=== PATIENT | female | born 1995 | race Caucasian/White ===

== ENCOUNTER 2019-07-09 12:16 | Observation (INO) | payer BC ==
[2019-07-09] VITALS (11 sets, daily range): BP systolic 134–161; BP diastolic 93–110
[~2019-07-09] VITALS: Ht 162.6 cm; Wt 67.3 kg
[2019-07-09] MEDS ORDERED: normal saline 1000ML IV soln IV ONE (12:40)
[2019-07-09] MEDS ORDERED: ondansetron/PF 4mg/2ml inj IV ONE ×2 (12:40→14:20)
[2019-07-09 13:21] LABS: LIPASE 113 U/L (73-393)
[2019-07-09] MEDS ORDERED: ketorolac trometh inj. 60 MG/2 ML VIAL IM ONE (13:25)
[2019-07-09] MEDS ORDERED: ondansetron 4mg rapidly disintigrating tab PO ONE (13:25)
[2019-07-09] MEDS ORDERED: ondansetron/PF 4mg/2ml inj IM ONE (13:50)
[2019-07-09 13:53] LABS: BASOPHILS # (AUTO) 0.1 X10'3 (0-0.2); BASOPHILS % (AUTO) 0.7 % (0-1); EOSINOPHILS # (AUTO) 0.4 X10'3 (0-0.9); EOSINOPHILS % (AUTO) 5.3 % (0-6); HEMOGLOBIN 14.1 g/dl (12.0-16.0); LYMPHOCYTES # (AUTO) 2.8 X10'3 (1.1-4.8); MEAN CORPUSCULAR HEMOGLOBIN 31.2 PG (27.0-31.0); MEAN CORPUSCULAR HGB CONC 33.6 g/dL (33.0-36.5); MEAN CORPUSCULAR VOLUME 92.8 FL (78-98); MEAN PLATELET VOLUME 7.4 FL (7.4-10.4); MONOCYTES # (AUTO) 0.5 X10'3 (0-0.9); MONOCYTES % (AUTO) 6.9 % (2-12); NEUTROPHILS # (AUTO) 3.9 X10'3 (1.8-7.7); NEUTROPHILS % (AUTO) 50.1 % (42-75); PLATELET COUNT 355 X10'3 (140-440); RED BLOOD COUNT 4.52 X10'6 (4.20-5.60); RED CELL DISTRIBUTION WIDTH 12.1 % (11.5-14.5); WHITE BLOOD COUNT 7.7 X10'3 (4.5-11.0)
[2019-07-09 14:01] LABS: ALANINE AMINOTRANSFERASE 22 U/L (12-78); ALBUMIN 3.7 G/DL (3.4-5.0); ALBUMIN/GLOBULIN RATIO 0.9 (1.1-1.5); ALKALINE PHOSPHATASE 73 IU/L (46-116); ANION GAP 11 (8-16); ASPARTATE AMINO TRANSFERASE 12 U/L (10-37); BILIRUBIN,TOTAL 0.2 MG/DL (0.1-1.0); BLOOD UREA NITROGEN 8 MG/DL (7-18); BUN/CREATININE RATIO 13.3 (6.6-38.0); CALCIUM 9.1 MG/DL (8.5-10.1); CHLORIDE 106 MMOL/L (99-107); GLUCOSE 95 MG/DL (70-104); POTASSIUM 3.7 MMOL/L (3.5-5.1); SODIUM 141 MMOL/L (135-145); TOTAL CARBON DIOXIDE 24.5 MMOL/L (24-32); TOTAL PROTEIN 7.9 G/DL (6.4-8.2); eGFR > 90 ML/MIN
--- NOTE | 2019-07-09 14:12 | NUR ---
pt went for ultrasound.pt mother at bedside ,pt meds given before ultrasound co pain 07/10.
[2019-07-09] MEDS ORDERED: normal saline 1000ML IV soln IVB ONE (14:20)
[2019-07-09] MEDS ORDERED: morphine 4 MG/ML inj SYRINge IV PRN ×3 (14:20→20:30)
[2019-07-09] MEDS ORDERED: LORazepam 2 mg/ml vial IV ONE (14:45)
--- NOTE | 2019-07-09 14:53 | NUR ---
PT MOVED FROM [facility] 13 TO B[facility] 13
[2019-07-09] MEDS ORDERED: magnesium hydroxide 30ml (MOM) UD suspension PO PRN (15:05)
[2019-07-09] MEDS ORDERED: ondansetron/PF 4mg/2ml inj IV PRN ×3 (15:05→21:55)
[2019-07-09] MEDS ORDERED: acetaminophen 325mg tablet PO PRN (15:05)
[2019-07-09] MEDS ORDERED: mag hydrox/Alum hydrox/simeth 30ml oral suspension PO PRN (15:05)
[2019-07-09] MEDS: normal saline 1000ml 1,000 ML IV SCH (15:24)
--- NOTE | 2019-07-09 15:24 | NUR ---
CONFIRMED WITH DR ETIENNE THAT ONLY 1 LITER BOLUS NEEDED, PT AMBULATORY TO BATHROOM AND PROVIDED URINE SAMPLE PER ORDERS
[2019-07-09] MEDS ORDERED: CLON-528 PO (15:37)
--- NOTE | 2019-07-09 16:06 | NUR ---
DR TYLER AT BEDSIDE TO DISCUSS PROCEDURE WITH PT AND FAMILY AT BEDSIDE.
--- NOTE | 2019-07-09 16:49 | NUR ---
RECEIVED A CALL FROM OR, NAYELI IS IN A CASE AND HAS ONE MORE CASE AFTER AND THEN RN WILL CALL TO GET REPORT AND BRING PT TO OR. OR ASKING ABOUT UA AND HCG, INFORMED URINE WAS SENT BUT LABS WERE CANCELED BY CHERELLE, ORDERED UR AND HCG PER PROTOCOL
[2019-07-09 17:01] LABS: CLARITY,URINE SLIGHTLY CLOUDY (Clear); COLOR,URINE YELLOW (Yellow); GLUCOSE, URINE NEGATIVE (Neg); KETONES,URINE NEGATIVE (Neg); LEUKOCYTE ESTERASE ,URINE NEGATIVE (Neg); NITRITES, URINE NEGATIVE (Neg); OCCULT BLOOD,URINE NEGATIVE (Neg); PH,URINE 6.5 (4.8-8.0); PROTEIN,URINE NEGATIVE (Neg); URINE HCG NEGATIVE (NEG); UROBILINOGEN,URINE 0.2 E.U/dL (0.2-1.0)
[2019-07-09 17:03] LABS: UA COLLECTION TYPE CLN CATCH MIDSTREAM
[2019-07-09] MEDS ORDERED: ETON1VAG VG (17:03)
[2019-07-09 17:10] LABS: BACTERIA,URINE FEW /HPF (Neg); MUCUS STRANDS FEW /LPF (Neg); RBC,URINE 0-2 /HPF (0-2); SQUAMOUS EPITHELIAL CELL,UR FEW /LPF (FEW); TRANSITIONAL EPI CELLS,URINE FEW /HPF; WBC,URINE 0-4 /HPF (0-4)
[2019-07-09] MEDS ORDERED: clonazePAM 0.5mg tablet PO PRN (17:10)
--- NOTE | 2019-07-09 17:15 | NUR ---
Report received from ED RNCristin.
[2019-07-09] MEDS: levoFLOXACIN-Levaquin 500mg/D5 100 ML IV SCH (18:13)
--- NOTE | 2019-07-09 18:15 | NUR ---
Problems reprioritized. Patient report given, questions answered & plan of care reviewed with BERTA Gomes.
[2019-07-09] MEDS: HYDROmorphone inj. 0.5 MG/0.5 ML DISP.SYRIN IV PRN (18:19)
--- NOTE | 2019-07-09 18:30 | NUR ---
Patient in room [facility]. I have received report from BERTA Lombardi and had the opportunity to ask questions and assume patient care.
--- NOTE | 2019-07-09 19:43 | NUR ---
Called report to OR.
[2019-07-09] MEDS ORDERED: ceFAZolin 1000mg inj ONE (20:25)
[2019-07-09] MEDS ORDERED: BUPIVAcaine/PF 2.5 mg/ml (0.25%) 30ml vial ONE (20:25)
[2019-07-09] MEDS ORDERED: ringers solution, lacted 1,000 ML IV SCH (20:28)
[2019-07-09] MEDS ORDERED: proCHLORperazine 10 MG/2 ml inj IV PRN (20:30)
[2019-07-09] MEDS ORDERED: meperidine/PF 25mg/ml syringe IV PRN ×2 (20:30)
[2019-07-09] MEDS ORDERED: fentaNYL /PF 50mcg/ml 5ml ampule ONE (20:40)
[2019-07-09] MEDS ORDERED: midazolam 2 mg/2 ml injection ONE (20:40)
[2019-07-09] MEDS ORDERED: sevoflurane 250ml liquid IH ONE (20:46)
[2019-07-09] MEDS ORDERED: dexamethasone sod phosphate 4mg/ml inj. ONE ×2 (21:15→21:21)
[2019-07-09] MEDS ORDERED: propofol inj 20 ML IV ONE (21:21)
[2019-07-09] MEDS ORDERED: ondansetron/PF 4mg/2ml inj ONE (21:21)
[2019-07-09] MEDS ORDERED: neostigmine methylsulfate 1 MG/ML 10ml vial ONE (21:21)
[2019-07-09] MEDS ORDERED: glycopyrrolate 0.2mg/ml inj ONE (21:21)
[2019-07-09] MEDS ORDERED: rocuronium 10mg/ml inj IV ONE (21:21)
[2019-07-09] MEDS ORDERED: LIDOcaine 2% (20mg/ml) 5ml vial ONE (21:21)
[2019-07-09] MEDS ORDERED: ePHEDrine 50MG/ML INJ. ONE (21:33)
--- NOTE | 2019-07-09 21:57 | NUR ---
Received from OR via , accompanied by Anesthesiologist ABRIL and report given by Anesthesiolgist. AWAKE IN NO RESP DISTRESS SKIN WARM AND DRY HOB ELEVATED ABD SOFT DSG DI NO CO PAIN. VS WNL. SCDS ON.
[2019-07-09] MEDS ORDERED: labetalol 20mg/4ml (5mg/ml) syringe IV ONE (22:05)
[2019-07-09] MEDS: meperidine/PF 25mg/ml syringe IV PRN ×2 (22:14→22:26)
--- NOTE | 2019-07-09 22:47 | NUR ---
Report called to receiving nurse. Transferred via BED Belongings . Special Issues communicated to receiving nurse.AWAKE VS WNL ABD SOFT DSG DI, PAIN DECREASED WITH IV MEDS, MOM AT BS, SCDS ON. TO ROOM
[2019-07-10] VITALS (8 sets, daily range): BP systolic 105–141; BP diastolic 62–102
[2019-07-10] MEDS: HYDROmorphone inj. 0.5 MG/0.5 ML DISP.SYRIN IV PRN ×2 (02:49→07:18)
[2019-07-10 05:34] LABS: BASOPHILS % (AUTO) 0.1 % (0-1); EOSINOPHILS % (AUTO) 0 % (0-6); HEMATOCRIT 38.3 % (35.0-45.0); HEMOGLOBIN 12.9 g/dl (12.0-16.0); LYMPHOCYTES # (AUTO) 0.9 X10'3 (1.1-4.8); LYMPHOCYTES % (AUTO) 8.5 % (21-51); MEAN CORPUSCULAR HEMOGLOBIN 31.2 PG (27.0-31.0); MEAN CORPUSCULAR HGB CONC 33.8 g/dL (33.0-36.5); MEAN CORPUSCULAR VOLUME 92.5 FL (78-98); MONOCYTES # (AUTO) 0.2 X10'3 (0-0.9); NEUTROPHILS # (AUTO) 9.1 X10'3 (1.8-7.7); NEUTROPHILS % (AUTO) 89.4 % (42-75); PLATELET COUNT 289 X10'3 (140-440); RED BLOOD COUNT 4.14 X10'6 (4.20-5.60); RED CELL DISTRIBUTION WIDTH 11.7 % (11.5-14.5); WHITE BLOOD COUNT 10.2 X10'3 (4.5-11.0)
[2019-07-10 05:56] LABS: ALANINE AMINOTRANSFERASE 45 U/L (12-78); ALBUMIN 3.2 G/DL (3.4-5.0); ALBUMIN/GLOBULIN RATIO 0.8 (1.1-1.5); ALKALINE PHOSPHATASE 65 IU/L (46-116); ANION GAP 10 (8-16); ASPARTATE AMINO TRANSFERASE 44 U/L (10-37); BILIRUBIN,TOTAL 0.3 MG/DL (0.1-1.0); BLOOD UREA NITROGEN 6 MG/DL (7-18); CHLORIDE 104 MMOL/L (99-107); CREATININE 0.67 MG/DL (0.40-0.90); GLUCOSE 142 MG/DL (70-104); SODIUM 137 MMOL/L (135-145); TOTAL CARBON DIOXIDE 22.7 MMOL/L (24-32); TOTAL PROTEIN 7.1 G/DL (6.4-8.2); eGFR > 90 ML/MIN
--- NOTE | 2019-07-10 06:01 | NUR ---
Problems reprioritized. Patient report given, questions answered & plan of care reviewed with BERTA De.
--- NOTE | 2019-07-10 06:56 | NUR ---
Patient in room [facility]. I have received report from Eliseo HAMPTON and had the opportunity to ask questions and assume patient care.
[2019-07-10] MEDS: levoFLOXACIN-Levaquin 500mg/D5 100 ML IV SCH (07:18)
[2019-07-10] MEDS: normal saline 1000ml 1,000 ML IV SCH ×2 (07:24→11:01)
[2019-07-10] MEDS: HYDROcodone/acetaminophen 10/325mg tab PO PRN ×2 (08:26→13:25)
--- NOTE | 2019-07-10 10:51 | NUR ---
Nutrition consult "Pt/family ed:" Pt hx T2DM A1C <7 and not appropriate for ed at this time. Addendum: 07/10/19 at [address] Amended: Links added.
[2019-07-10] MEDS ORDERED: HYDR-4353 PO (12:27)
--- NOTE | 2019-07-10 13:45 | NUR ---
Pt DC to home, belongings taken by pt and family member. She is A & O, pain free, pt verbalizes discharge instructions and understands it.
== END 2019-07-10 13:48 | disposition home or self-care (01) ==
LOC: ER 12:17 → SUR 3N 17:20 → CMPBEDREQ 19:34
PROVIDERS: ADMIT Family Medicine; ATTEND Family Medicine
DX: K80.00 Calculus of gallbladder with acute cholecystitis without obstruction (principal); R11.2 Nausea with vomiting, unspecified; F17.210 Nicotine dependence, cigarettes, uncomplicated; F41.9 Anxiety disorder, unspecified
CPT/HCPCS: 36415; 47562; 71045; 76700; 80053; 81001; 81025; 82948; 83036; 83690; 85025; 87081; 93005; 96361; 96365; 96366; 96372; 96375; 96376; 99284; G0378; J0690; J0780; J1100; J1170; J1885; J1956; J2001; J2060; J2175; J2250; J2270; J2405; J2704; J2710; J3010; J3490; J7030; J7120; A4215; A4618; A7000

== ENCOUNTER 2019-07-18 02:10 | Inpatient (IN) | payer BC, OTHER ==
[~2019-07-18] VITALS: Ht 162.6 cm; Wt 68.2 kg
[~2019-07-18 02:10] MED LIST: CLON-528 PO; ETON1VAG VG; HYDR-4353 PO
[2019-07-18 02:55] LABS: BASOPHILS # (AUTO) 0.1 X10'3 (0-0.2); BASOPHILS % (AUTO) 0.6 % (0-1); EOSINOPHILS # (AUTO) 0.3 X10'3 (0-0.9); EOSINOPHILS % (AUTO) 1.9 % (0-6); HEMATOCRIT 37.6 % (35.0-45.0); HEMOGLOBIN 12.8 g/dl (12.0-16.0); LYMPHOCYTES # (AUTO) 3.8 X10'3 (1.1-4.8); MEAN CORPUSCULAR HGB CONC 34.1 g/dL (33.0-36.5); MEAN CORPUSCULAR VOLUME 90.9 FL (78-98); MEAN PLATELET VOLUME 7.2 FL (7.4-10.4); MONOCYTES # (AUTO) 1.4 X10'3 (0-0.9); MONOCYTES % (AUTO) 9.9 % (2-12); NEUTROPHILS # (AUTO) 8.5 X10'3 (1.8-7.7); NEUTROPHILS % (AUTO) 60.6 % (42-75); PLATELET COUNT 380 X10'3 (140-440); RED BLOOD COUNT 4.13 X10'6 (4.20-5.60); RED CELL DISTRIBUTION WIDTH 11.7 % (11.5-14.5)
[2019-07-18 02:59] LABS: CLARITY,URINE CLEAR (Clear); COLOR,URINE YELLOW (Yellow); GLUCOSE, URINE NEGATIVE (Neg); KETONES,URINE NEGATIVE (Neg); LEUKOCYTE ESTERASE ,URINE NEGATIVE (Neg); NITRITES, URINE NEGATIVE (Neg); OCCULT BLOOD,URINE NEGATIVE (Neg); PROTEIN,URINE NEGATIVE (Neg); UROBILINOGEN,URINE 0.2 E.U/dL (0.2-1.0)
[2019-07-18 03:00] LABS: UA COLLECTION TYPE CLN CATCH MIDSTREAM
[2019-07-18] MEDS ORDERED: normal saline 1000ML IV soln IVB ONE (03:10)
[2019-07-18] MEDS ORDERED: ondansetron/PF 4mg/2ml inj IV ONE ×2 (03:10→04:10)
[2019-07-18 03:12] LABS: ALANINE AMINOTRANSFERASE 57 U/L (12-78); ALBUMIN 3.4 G/DL (3.4-5.0); ALBUMIN/GLOBULIN RATIO 0.8 (1.1-1.5); ALKALINE PHOSPHATASE 84 IU/L (46-116); ANION GAP 11 (8-16); ASPARTATE AMINO TRANSFERASE 23 U/L (10-37); BILIRUBIN,TOTAL 0.3 MG/DL (0.1-1.0); BLOOD UREA NITROGEN 7 MG/DL (7-18); BUN/CREATININE RATIO 10.6 (6.6-38.0); CALCIUM 8.7 MG/DL (8.5-10.1); CHLORIDE 105 MMOL/L (99-107); CREATININE 0.66 MG/DL (0.40-0.90); GLUCOSE 95 MG/DL (70-104); POTASSIUM 3.5 MMOL/L (3.5-5.1); SODIUM 141 MMOL/L (135-145); TOTAL CARBON DIOXIDE 24.8 MMOL/L (24-32); TOTAL PROTEIN 7.6 G/DL (6.4-8.2); eGFR > 90 ML/MIN
[2019-07-18] MEDS: morphine 4 MG/ML inj SYRINge IV PRN ×3 (03:16→05:41)
[2019-07-18] MEDS ORDERED: iohexol 300mg/ml 100ml inj. ONE (03:20)
--- NOTE | 2019-07-18 04:07 | NUR ---
Pt's pain 6 out of 10 and she is getting nauseaus again.
[2019-07-18] MEDS ORDERED: CEPH-572 PO (04:44)
[2019-07-18] MEDS ORDERED: SULF1TAB49 PO (04:44)
[2019-07-18] MEDS ORDERED: CefTRIAXone 2gm/D5W 50ml 50 ML IV ONE (04:45)
[2019-07-18] MEDS ORDERED: vancomycin/NS 1 GM ADD-VANTAGE 250 ML IV ONE (04:45)
--- NOTE | 2019-07-18 05:08 | NUR ---
pt with pain 5 out of 10, 40 min after morphine administration. rocefin infusing. mother remains at bedside.
[2019-07-18] MEDS ORDERED: ondansetron 4mg rapidly disintigrating tab PO ONE (05:20)
[2019-07-18] MEDS: HYDROcodone/acetaminophen 10/325mg tab PO ONE ×2 (05:20→07:38)
[2019-07-18] MEDS ORDERED: ONDA4TAB6 PO (05:22)
[2019-07-18] MEDS ORDERED: HYDR-4353 PO (05:22)
[2019-07-18] MEDS ORDERED: morphine 4 MG/ML inj SYRINge IV ONE (05:40)
--- NOTE | 2019-07-18 06:07 | NUR ---
DR. VILLARREAL CONSULTED WITH DR. TYLER. PT NOW AWAITING HOSPITALIST. DR. VILLARREAL TALKING WITH PT AND MOTHER NOW ABOUT PLAN OF CARE.
[2019-07-18] MEDS: proCHLORperazine 10 MG/2 ml inj IV ONE ×2 (06:42→08:36)
[2019-07-18] MEDS ORDERED: magnesium 4gm in 100ml NS 100 ML IV PRN (08:05)
[2019-07-18] MEDS ORDERED: magnesium Cl slow-release 64mg tablet PO PRN (08:05)
[2019-07-18] MEDS ORDERED: HYDROcodone/acetaminophen 5mg/325mg tablet PO PRN (08:05)
[2019-07-18] MEDS ORDERED: morphine 2 MG/ML inj. syringe IV PRN (08:05)
[2019-07-18] MEDS ORDERED: acetaminophen 325mg tablet PO PRN (08:05)
[2019-07-18] MEDS ORDERED: mag hydrox/Alum hydrox/simeth 30ml oral suspension PO PRN (08:05)
[2019-07-18] MEDS ORDERED: potassium CL 10mEq/100ml bag 100 ML IV PRN ×2 (08:05)
[2019-07-18] MEDS ORDERED: ondansetron/PF 4mg/2ml inj IV PRN (08:05)
[2019-07-18] MEDS ORDERED: potassium Cl 20 mEq SR tablet PO PRN ×2 (08:05)
[2019-07-18] MEDS ORDERED: magnesium 2GM in 50ml NS 50 ML IV PRN (08:05)
[2019-07-18] MEDS ORDERED: magnesium hydroxide 30ml (MOM) UD suspension PO PRN (08:05)
[2019-07-18] MEDS: normal saline 1000ml 1,000 ML IV SCH ×2 (08:36→17:57)
[2019-07-18] MEDS ORDERED: HYDR-3973 PO (09:01)
--- NOTE | 2019-07-18 11:00 | NUR ---
Received report from Savita HAMPTON in ED, will assess patient when she arrives.
[2019-07-18 11:30] VITALS: BP 106/67
[2019-07-18] MEDS ORDERED: proCHLORperazine 10 MG/2 ml inj IV PRN (12:00)
--- NOTE | 2019-07-18 14:21 | NUR ---
Provided incentive spirometer and education on its use and benefits per MD order.
[2019-07-18] MEDS: piperacillin/tazo 3.375gm/50ml 50 ML IV SCH (15:48)
[2019-07-18 18:00] VITALS: BP 106/72
--- NOTE | 2019-07-18 18:27 | NUR ---
Problems reprioritized. Patient report given, questions answered & plan of care reviewed with Prudence RN. Patient sitting and eating dinner with family/ friends.
--- NOTE | 2019-07-18 18:29 | NUR ---
Patient in room [facility]. I have received report from Robson HAMPTON and had the opportunity to ask questions and assume patient care. Patient is family members by her bedside and having dinner brought from home. She shows no sign of distress.
[2019-07-18] MEDS: morphine 2 MG/ML inj. syringe IV PRN (19:18)
[2019-07-19] VITALS: BP 108/60
[2019-07-19] MEDS: piperacillin/tazo 3.375gm/50ml 50 ML IV SCH ×3 (00:12→15:55)
[2019-07-19] MEDS: normal saline 1000ml 1,000 ML IV SCH ×2 (03:28→14:15)
[2019-07-19] MEDS: morphine 2 MG/ML inj. syringe IV PRN ×2 (05:03→09:09)
[2019-07-19 05:21] LABS: BASOPHILS # (AUTO) 0.1 X10'3 (0-0.2); BASOPHILS % (AUTO) 0.8 % (0-1); EOSINOPHILS # (AUTO) 0.5 X10'3 (0-0.9); EOSINOPHILS % (AUTO) 5.9 % (0-6); HEMATOCRIT 32.1 % (35.0-45.0); HEMOGLOBIN 10.9 g/dl (12.0-16.0); LYMPHOCYTES # (AUTO) 3.5 X10'3 (1.1-4.8); LYMPHOCYTES % (AUTO) 43.5 % (21-51); MEAN CORPUSCULAR HEMOGLOBIN 31.2 PG (27.0-31.0); MEAN CORPUSCULAR HGB CONC 34.1 g/dL (33.0-36.5); MEAN CORPUSCULAR VOLUME 91.7 FL (78-98); MEAN PLATELET VOLUME 7.4 FL (7.4-10.4); MONOCYTES # (AUTO) 0.7 X10'3 (0-0.9); MONOCYTES % (AUTO) 8.9 % (2-12); NEUTROPHILS # (AUTO) 3.3 X10'3 (1.8-7.7); NEUTROPHILS % (AUTO) 40.9 % (42-75); PLATELET COUNT 306 X10'3 (140-440); RED CELL DISTRIBUTION WIDTH 11.8 % (11.5-14.5)
[2019-07-19 05:37] LABS: ALBUMIN 2.7 G/DL (3.4-5.0); ANION GAP 8 (8-16); BLOOD UREA NITROGEN 3 MG/DL (7-18); BUN/CREATININE RATIO 5.8 (6.6-38.0); CALCIUM 8.3 MG/DL (8.5-10.1); CHLORIDE 110 MMOL/L (99-107); CREATININE 0.52 MG/DL (0.40-0.90); GLUCOSE 109 MG/DL (70-104); MAGNESIUM 1.9 MG/DL (1.5-2.4); POTASSIUM 3.8 MMOL/L (3.5-5.1); SODIUM 143 MMOL/L (135-145); TOTAL CARBON DIOXIDE 25.1 MMOL/L (24-32); eGFR > 90 ML/MIN
--- NOTE | 2019-07-19 06:27 | NUR ---
Problems reprioritized. Patient report given, questions answered & plan of care reviewed with Karoline HAMPTON.
--- NOTE | 2019-07-19 06:42 | NUR ---
Patient in room [facility]. I have received report from BERTA Schulz and had the opportunity to ask questions and assume patient care.
[2019-07-19 07:36] VITALS: BP 105/58
[2019-07-19] MEDS: K and/or MAG REPLACEMENT MC SCH (08:00)
--- NOTE | 2019-07-19 10:51 | NUR ---
I accidently canceled admit order while canceling cdiff. I notified Dr Cruz and put back in the admit order just as it had been ordered before.
[2019-07-19 12:01] VITALS: BP 129/81
[2019-07-19] MEDS: oxyCODONE/APAP 10/325mg tablet PO PRN ×3 (12:13→21:10)
[2019-07-19] MEDS: nicotine 7mg patch - 24hr TD SCH (12:13)
--- NOTE | 2019-07-19 15:23 | NUR ---
Initial: Pt admit w/ infection s/p lap cholecystectomy. Advanced to regular diet PO 100% meals meeting needs so far. LBM 07/18. Nausea and diarrhea noted on admit. No surgical intervention at this time per MD note. Will continue to monitor. Rec: 1. continue regular diet 2. monitor for ONS needs if PO declines 3. wt per rx Addendum: 07/19/19 at [address] Amended: Links added.
--- NOTE | 2019-07-19 18:37 | NUR ---
Problems reprioritized. Patient report given, questions answered & plan of care reviewed with BERTA Arshad.
[2019-07-19 19:00] VITALS: BP 146/105
[2019-07-19] MEDS: lactobacillus rhamnosus 10,000 MMU CELLS/CAPSULE PO SCH (19:15)
[2019-07-20] VITALS: BP 148/102
[2019-07-20 05:23] LABS: BASOPHILS # (AUTO) 0.1 X10'3 (0-0.2); BASOPHILS % (AUTO) 0.8 % (0-1); EOSINOPHILS # (AUTO) 0.4 X10'3 (0-0.9); EOSINOPHILS % (AUTO) 4.9 % (0-6); HEMATOCRIT 35.2 % (35.0-45.0); HEMOGLOBIN 12.1 g/dl (12.0-16.0); LYMPHOCYTES # (AUTO) 3.5 X10'3 (1.1-4.8); LYMPHOCYTES % (AUTO) 41.4 % (21-51); MEAN CORPUSCULAR HEMOGLOBIN 31.4 PG (27.0-31.0); MEAN CORPUSCULAR HGB CONC 34.3 g/dL (33.0-36.5); MEAN CORPUSCULAR VOLUME 91.4 FL (78-98); MEAN PLATELET VOLUME 7.4 FL (7.4-10.4); MONOCYTES # (AUTO) 0.7 X10'3 (0-0.9); MONOCYTES % (AUTO) 7.8 % (2-12); NEUTROPHILS # (AUTO) 3.9 X10'3 (1.8-7.7); NEUTROPHILS % (AUTO) 45.1 % (42-75); PLATELET COUNT 334 X10'3 (140-440); RED BLOOD COUNT 3.85 X10'6 (4.20-5.60); RED CELL DISTRIBUTION WIDTH 11.7 % (11.5-14.5); WHITE BLOOD COUNT 8.6 X10'3 (4.5-11.0)
[2019-07-20 05:27] LABS: ALBUMIN 3.1 G/DL (3.4-5.0); ANION GAP 10 (8-16); BLOOD UREA NITROGEN 5 MG/DL (7-18); BUN/CREATININE RATIO 8.5 (6.6-38.0); CALCIUM 8.8 MG/DL (8.5-10.1); CHLORIDE 106 MMOL/L (99-107); CREATININE 0.59 MG/DL (0.40-0.90); GLUCOSE 89 MG/DL (70-104); POTASSIUM 3.7 MMOL/L (3.5-5.1); SODIUM 141 MMOL/L (135-145); TOTAL CARBON DIOXIDE 25.5 MMOL/L (24-32); eGFR > 90 ML/MIN
--- NOTE | 2019-07-20 06:21 | NUR ---
Patient in room [facility]. I have received report from BERTA Arshad and had the opportunity to ask questions and assume patient care.
[2019-07-20] MEDS: oxyCODONE/APAP 10/325mg tablet PO PRN ×3 (06:24→14:14)
--- NOTE | 2019-07-20 06:27 | NUR ---
Problems reprioritized. Patient report given, questions answered & plan of care reviewed with BERTA Ramey.
[2019-07-20 07:23] VITALS: BP 123/76
[2019-07-20] MEDS: lactobacillus rhamnosus 10,000 MMU CELLS/CAPSULE PO SCH (07:56)
[2019-07-20] MEDS: piperacillin/tazo 3.375gm/50ml 50 ML IV SCH ×2 (07:56)
[2019-07-20] MEDS: nicotine 7mg patch - 24hr TD SCH (07:57)
[2019-07-20] MEDS: K and/or MAG REPLACEMENT MC SCH (08:00)
[2019-07-20 11:00] VITALS: BP 129/85
--- NOTE | 2019-07-20 13:35 | NUR ---
Wound photo taken on admission. Dressing changed today, pt refused to have dressing removed for discharge photo. Addendum: 07/20/19 at 1336 by Karoline Gaona RN Amended: Links added.
[2019-07-20] MEDS ORDERED: LACTC PO ×2 (13:40→13:43)
[2019-07-20] MEDS ORDERED: CIPR-230 PO (13:43)
[2019-07-20] MEDS ORDERED: PER5325T PO (13:43)
--- NOTE | 2019-07-20 15:19 | NUR ---
Pt discharged to home with all belongings at 1425, in private vehicle. Discharge instructions and medications reviewed. New prescriptions called to [facility] on [address], triplicate for percocet 5 given to pt with instructions to take to pharmacy to fill. IV DC'd, cannula intact. Pt provided with 3 hydrophilic foams and instructed to follow up with Dr Thomas on Monday 07/23. student escorted pt to lobby via wheelchair.
== END 2019-07-20 14:25 | disposition home or self-care (01) | DRG 863 ==
LOC: ER 02:10 → SUR 3N 11:43 → OBSVTOIN 11:43
PROVIDERS: ADMIT Hospitalist; ATTEND Hospitalist
DX: T81.41XA Infection following a procedure, superficial incisional surgical site, initial encounter (principal); G89.18 Other acute postprocedural pain; Y83.8 Other surgical procedures as the cause of abnormal reaction of the patient, or of later complication, without mention of misadventure at the time of the procedure; B96.5 Pseudomonas (aeruginosa) (mallei) (pseudomallei) as the cause of diseases classified elsewhere; Z90.49 Acquired absence of other specified parts of digestive tract; Z79.899 Other long term (current) drug therapy; Y92.89 Other specified places as the place of occurrence of the external cause
CPT/HCPCS: 36415; 74177; 80048; 80053; 81003; 83605; 83735; 84145; 85025; 87040; 87070; 87077; 87081; 87186; 96365; 96367; 96375; 96376; 99285; G0378; J0696; J0780; J2270; J2405; J2543; J3370; J7030; Q9967

== ENCOUNTER 2021-05-06 19:24 | Emergency (ER) | payer OTHER ==
[~2021-05-06] VITALS: Ht 162.6 cm; Wt 75.0 kg
[~2021-05-06 19:24] MED LIST changes: -CLON-528 PO; -HYDR-4353 PO; +LACTC PO
[2021-05-06 19:47] VITALS: BP 143/109
== END 2021-05-06 21:54 | disposition home or self-care (01) ==
LOC: ER 19:26
DX: S90.31XA Contusion of right foot, initial encounter (principal); M79.671 Pain in right foot; Z90.49 Acquired absence of other specified parts of digestive tract; Z72.89 Other problems related to lifestyle; Z79.899 Other long term (current) drug therapy; W19.XXXA Unspecified fall, initial encounter; Y93.89 Activity, other specified; Y92.89 Other specified places as the place of occurrence of the external cause; Y99.8 Other external cause status
CPT/HCPCS: 73610; 73630; 99284

== ENCOUNTER → 2021-06-13 | Emergency (ER) | payer OTHER ==
[~2021-06-13] VITALS: Ht 162.6 cm; Wt 79.4 kg
[~2021-06-13] MED LIST changes: +IBUP-1984 PO; +ketorolac tromethamine 15mg/ml inj. IM ONE
[2021-06-13 07:04] VITALS: BP 146/109
== END | disposition home or self-care (01) ==
LOC: ER 06:36
DX: S93.601A Unspecified sprain of right foot, initial encounter (principal); M25.571 Pain in right ankle and joints of right foot; Z72.89 Other problems related to lifestyle; Z79.899 Other long term (current) drug therapy; Y04.8XXA Assault by other bodily force, initial encounter; Y93.89 Activity, other specified; Y92.89 Other specified places as the place of occurrence of the external cause; Y99.8 Other external cause status
CPT/HCPCS: 73630; 96372; 99283; J1885